=== PATIENT | male | born 1985 | race Caucasian/White ===

== ENCOUNTER 2021-09-30 18:33 | Emergency (ER) | payer OTHER ==
[2021-09-30 19:38] LABS: HEMOGLOBIN 17.2 gm/dl (14.0-17.5); RED BLOOD COUNT 5.4 M/UL (4.20-5.50); WHITE BLOOD COUNT 6.7 K/UL (4.5-11.0)
[2021-09-30 20:24] LABS: BUN/CREATININE RATIO 24 (0-10)
[2021-09-30] MEDS ORDERED: ZOFRAN ODT 4 MG4 MG PO (22:13)
[2021-09-30] MEDS ORDERED: BENTYL 20MG TAB20 MG PO (22:13)
[2021-09-30] MEDS ORDERED: CARAFATE1 GM/10 ML PO (22:13)
== END 2021-09-30 22:36 | disposition home or self-care (01) ==
LOC: ER1 18:33
PROVIDERS: Physician Assistant
DX: R10.812 Left upper quadrant abdominal tenderness (principal)
CPT/HCPCS: 71045; 80053; 81001; 83690; 85025; 99284; Q9967